=== PATIENT | female | born 1960 ===

== ENCOUNTER 2018-11-17 11:24 | Inpatient (IN) | payer OTHER ==
[~2018-11-17] VITALS: Ht 157.5 cm; Wt 120.2 kg
== END 2018-11-27 15:38 | disposition home or self-care (01) | DRG 735 ==
LOC: O/R 11-24 06:44 → SURH 11-24 11:22 → OB/GYN 11-24 22:12
PROVIDERS: ADMIT Obstetrics & Gynecology Gynecologic Oncology
PROC: 07TC0ZZ Resection of Pelvis Lymphatic, Open Approach (ICD-10-PCS; 2018-11-24)
PROC: 0UT70ZZ Resection of Bilateral Fallopian Tubes, Open Approach (ICD-10-PCS; 2018-11-24)
PROC: 0UT90ZZ Resection of Uterus, Open Approach (ICD-10-PCS; principal; 2018-11-24 12:30)
DX: C54.1 Malignant neoplasm of endometrium (principal)

== ENCOUNTER 2018-11-21 06:32 | Day surgery (SDC) | payer OTHER | END 2018-11-21 12:05 | disposition home or self-care (01) | LOC: AMB-ENDOS 06:32 | DX: K62.1 Rectal polyp (principal) ==